=== PATIENT | male | born 1970 | race American Indian/Alaskan Native ===

== ENCOUNTER 2019-09-19 20:26 | Emergency (ER) | payer BC ==
--- NOTE | 2019-09-19 22:25 | Emergency Department Report ---
ED N/V/D HPI - General Chief complaint: Fever Stated complaint: VOMITING FEVER Time Seen by Provider: 09/19/19 22:07 Source: patient Mode of arrival: Ambulatory Limitations: No Limitations - History of Present Illness Initial comments: Patient is a 48-year-old male presents emergency room with complaints of nausea and vomiting that began this morning. He states he has had approximately 5-6 episodes of vomiting. He states he has also had some diarrhea. He denies any fever, recent travel, recent camping, sick contacts, hematochezia, hematemesis, melena, abdominal pain. He states that last night he ate some hot dogs that had been sitting in the fridge for a while. He states that he had Zofran around 1:30 PM and he was able to keep liquids down after taking it. He denies any past medical history. He denies any allergies to medications. - Related Data Previous Rx's Medication Instructions Recorded Last Taken Type Hyoscyamine Subl [Levsin Sl 0.125 0.125 mg SL Q6HR PRN #10 tab 09/20/19 Unknown Rx TAB] Ondansetron [Zofran Odt] 4 mg PO Q8HR PRN #14 tab.rapdis 09/20/19 Unknown Rx Allergies Allergy/AdvReac Type Severity Reaction Status Date / Time No Known Allergies Allergy Unverified 09/19/19 21:55 ED Review of Systems ROS: Stated complaint: VOMITING FEVER Other details as noted in HPI Comment: All other systems reviewed and negative ED Past Medical Hx - Past Medical History Previous Medical History?: No - Surgical History Hx Appendectomy: Yes - Social History Smoking Status: Never Smoker Substance Use Type: None - Medications Home Medications: Home Medications Medication Instructions Recorded Confirmed Last Taken Type Hyoscyamine Subl [Levsin Sl 0.125 0.125 mg SL Q6HR PRN #10 tab 09/20/19 Unknown Rx TAB] Ondansetron [Zofran Odt] 4 mg PO Q8HR PRN #14 tab.rapdis 09/20/19 Unknown Rx ED Physical Exam - General Limitations: No Limitations General appearance: alert, in no apparent distress - Head Head exam: Present: atraumatic, normocephalic - Eye Eye exam: Present: normal appearance - ENT ENT exam: Present: mucous membranes moist - Respiratory Respiratory exam: Present: normal lung sounds bilaterally. Absent: respiratory distress, wheezes, rales, rhonchi, stridor, chest wall tenderness, accessory muscle use, decreased breath sounds, prolonged expiratory - Cardiovascular Cardiovascular Exam: Present: regular rate, normal rhythm, normal heart sounds. Absent: systolic murmur, diastolic murmur, rubs, gallop - GI/Abdominal GI/Abdominal exam: Present: soft, normal bowel sounds. Absent: distended, t enderness, guarding, rebound, rigid - Neurological Exam Neurological exam: Present: alert, oriented X3 - Psychiatric Psychiatric exam: Present: normal affect, normal mood - Skin Skin exam: Present: warm, dry, intact ED Course Vital Signs 09/19/19 09/19/19 20:50 22:46 Temperature 97.6 F 98.8 F Pulse Rate 81 78 Respiratory 20 15 Rate Blood Pressure 98/55 Blood Pressure 111/65 [Right] O2 Sat by Pulse 100 100 Oximetry ED Medical Decision Making - Lab Data Result diagrams: 09/19/19 22:36 09/19/19 22:36 Lab Results 09/19/19 09/19/19 Range/Units 22:36 22:36 WBC 7.1 (4.5-11.0) K/mm3 RBC 4.50 (3.65-5.03) M/mm3 Hgb 15.1 (11.8-15.2) gm/dl Hct 44.3 (35.5-45.6) % MCV 98 H (84-94) fl MCH 33 H (28-32) pg MCHC 34 (32-34) % RDW 12.5 L (13.2-15.2) % Plt Count 201 (140-440) K/mm3 Lymph % (Auto) 5.9 L (13.4-35.0) % [place] % (Auto) 6.4 (0.0-7.3) % Eos % (Auto) 0.1 (0.0-4.3) % Baso % (Auto) 0.2 (0.0-1.8) % Lymph # 0.4 L (1.2-5.4) K/mm3 [place] # 0.5 (0.0-0.8) K/mm3 Eos # 0.0 (0.0-0.4) K/mm3 Baso # 0.0 (0.0-0.1) K/mm3 Seg Neutrophils % 87.4 H (40.0-70.0) % Seg Neutrophils # 6.2 (1.8-7.7) K/mm3 Sodium 139 (137-145) mmol/L Potassium 3.9 (3.6-5.0) mmol/L Chloride 100.7 (98-107) mmol/L Carbon Dioxide 25 (22-30) mmol/L Anion Gap 17 mmol/L BUN 18 (9-20) mg/dL Creatinine 1.0 (0.8-1.5) mg/dL Estimated GFR > 60 ml/min BUN/Creatinine Ratio 18 % Glucose 112 H (75-100) mg/dL Calcium 8.8 (8.4-10.2) mg/dL Total Bilirubin 0.90 (0.1-1.2) mg/dL AST 17 (5-40) units/L ALT 17 (7-56) units/L Alkaline Phosphatase 37 (35-129) units/L Total Protein 7.1 (6.3-8.2) g/dL Albumin 4.4 (3.9-5) g/dL Albumin/Globulin Ratio 1.6 % Lipase 16 (13-60) units/L - Medical Decision Making Patient is a 48-year-old male presents emergency room with complaints of nausea and vomiting that began this morning. He states he has had approximately 5-6 episodes of vomiting. He states he has also had some diarrhea. He denies any fever, recent travel, recent camping, sick contacts, hematochezia, hematemesis, melena, abdominal pain. He states that last night he ate some hot dogs that had been sitting in the fridge for a while. He states that he had Zofran around 1:30 PM and he was able to keep liquids down after taking it. He denies any past medical history. He denies any allergies to medications. Initial vitals with mild hypotension which improved upon repeat. Labs are stable. No abdominal tenderness on exam, no rebound, no guarding, no rigidity, no peritoneal signs. Patient given 1 L of IV fluids, Zofran, Bentyl and symptoms improved. Patient had no further episodes of nausea vomiting while in the emergency department was able to tolerate p.o. intake. Patient given p rescription for Levsin and Zofran to take as needed. please take medication as needed. Advised patient to please increase his fluid intake over the next several days. Eat a bland diet. Follow-up with a primary care doctor in the next 2 to 3 days. Return to the emergency room for any new or worsening symptoms. - Differential Diagnosis gastroenteritis, food poisoning, gastritis, colitis, obstruction, appendici Critical care attestation.: If time is entered above; I have spent that time in minutes in the direct care of this critically ill patient, excluding procedure time. ED Disposition Clinical Impression: Nausea vomiting and diarrhea Disposition: TO HOME OR SELFCARE Is pt being admited?: No Does the pt Need Aspirin: No Condition: Stable Instructions: Gastroenteritis (ED) Additional Instructions: please take medication as needed. Advised patient to please increase his fluid intake over the next several days. Eat a bland diet. Follow-up with a primary care doctor in the next 2 to 3 days. Return to the emergency room for any new or worsening symptoms. Prescriptions: Hyoscyamine Subl [Levsin Sl 0.125 TAB] 0.125 mg SL Q6HR PRN #10 tab PRN Reason: abdominal cramping Ondansetron [Zofran Odt] 4 mg PO Q8HR PRN #14 tab.rapdis PRN Reason: Nausea And Vomiting Referrals: ITZEL DOTY MD [Staff Physician] - 2-3 Days [facility] [Outside] - 2-3 Days [facility] [Outside] - 2-3 Days Time of Disposition: 23:59 Print Language: PRYDEINIG
[2019-09-19 22:47] VITALS: BP 111/65
[2019-09-19] MEDS: ONDANSETRON 4 MG/2 ML INJ IV ONE (22:57)
[2019-09-19] MEDS: SODIUM CHLORIDE 0.9% 1000 ML 1,000 ML IV ONE (22:57)
[2019-09-19] MEDS: DICYCLOMINE 20 MG/2 ML INJ IM ONE (22:57)
[2019-09-19 23:06] LABS: Basophils % (Auto) 0.2 % (0.0-1.8); Eosinophils % (Auto) 0.1 % (0.0-4.3); Hematocrit 44.3 % (35.5-45.6); Hemoglobin 15.1 gm/dl (11.8-15.2); Lymphocytes # (Auto) 0.4 K/mm3 (1.2-5.4); Lymphocytes % (Auto) 5.9 % (13.4-35.0); Mean Corpuscular HGB Conc 34 % (32-34); Mean Corpuscular Volume 98 fl (84-94); Monocytes # (Auto) 0.5 K/mm3 (0.0-0.8); Monocytes % (Auto) 6.4 % (0.0-7.3); Platelet Count 201 K/mm3 (140-440); Red Cell Distribution Width 12.5 % (13.2-15.2)
[2019-09-19 23:18] LABS: Alanine Aminotransferase 17 units/L (7-56); Albumin 4.4 g/dL (3.9-5); BUN/Creatinine Ratio 18; Blood Urea Nitrogen 18 mg/dL (9-20); Calcium 8.8 mg/dL (8.4-10.2); Hemolysis Index 8
== END 2019-09-20 00:10 | disposition home or self-care (01) ==
LOC: ED 20:26
DX: R11.2 Nausea with vomiting, unspecified (principal); R19.7 Diarrhea, unspecified; Z90.49 Acquired absence of other specified parts of digestive tract; Z79.899 Other long term (current) drug therapy
CPT/HCPCS: 36415; 80053; 83690; 85025; 96361; 96372; 96374; 99283; J0500; J2405; J7030